=== PATIENT | male | born 1965 | race Caucasian/White ===

== ENCOUNTER 2022-03-24 00:20 | Day surgery (SDC) | payer BC, SELFPAY ==
[2022-03-07 15:05] VITALS: BMI 33.0
--- NOTE | 2022-03-23 13:30 | SUR.PREOP ---
pt notified there has been a recall on magnesium citrate and to not take this with his prep. pt verbalized understanding.
[2022-03-24 07:18] VITALS: BP 121/77; PULSE 56; RESP 16; TEMP 36.2; O2SAT 99; BMI 32.7
[2022-03-24] MEDS: LACTATED RINGERS 1,000 ML 150 ML IV CONT (07:28)
--- NOTE | 2022-03-24 07:53 | P.PNAN_ITS ---
Anes - Initial Pre Proc Eval Procedure: Operation Date: 03/24/22 08:30 Proposed Procedures p Screening Colonoscopy - Steven Craven MD Date/Time: 03/24/22 07:53 Surgeon: Steven Craven MD Pre Op Diagnosis: neoplasm screening Patient Data Age: 56 Gender: M Height: 1.78 m Weight: 103.5 kg Last Vital Signs Temp 97.2 F L 03/24/22 07:18 Pulse 56 L 03/24/22 07:18 Resp 16 03/24/22 07:18 BP 121/77 03/24/22 07:18 Pulse Ox 99 03/24/22 07:18 O2 Del Method Room Air 03/24/22 07:18 Allergies Allergy/AdvReac Type Severity Reaction Status Date / Time No Known Allergies Allergy Verified 03/24/22 07:15 Home Medications Medication Instructions Recorded Confirmed Type atorvastatin 40 mg tablet 40 mg PO DAILY 03/07/22 03/24/22 History lisinopril 20 mg tablet 20 mg PO DAILY 03/07/22 03/24/22 History Patient hx anesthesia problems: none Family hx anesthesia problems: none Results Review: All pre-operative results and documents have been reviewed as part of the pre- operative evaluation. PMFSH Social History Social History Smoking packs per day: 1 Smoking cigarettes per day: 20.0 Smoking status: Former smoker Tobacco type: cigarettes Living arrangements: with family Anes - Eval Final PreProcedure Day of Procedure 03/24/22 07:53 Patient weight: obese Heart: regular rate and rhythm Lungs: clear to auscultation Airway: Mallampati scale class II Neurological: alert and oriented Last oral intake: >/= 8 hours ASA classification: II Emergent: no Anesthetic plan: proceed Anesthesia type and monitoring: general GIVS and standard monitoring Results Review: All pre-operative results and documents have been reviewed as part of the pre- operative evaluation. Informed Consent: The patient's anesthetic plan and its attendant risks and benefits were discussed with the patient/family/POA. Questions were solicited and answers provided to the satisfaction of the patient/family/POA.
--- NOTE | 2022-03-24 07:53 | PM.IMHP ---
H&P: HPI History of Present Illness Date/Time: 03/24/22 07:53 Chief Complaint: Neoplasia screening. Narrative: This is a 56-year-old white male patient presents for screening colonoscopy. Patient's current weight appetite and bowel movements are normal. Patient denies abdominal pain. He has had no bleeding. Family history is noncontributory. Review of Systems Review of Systems: Review of systems noncontributory. [facility] Social History Social History Smoking packs per day: 1 Smoking cigarettes per day: 20.0 Smoking status: Former smoker Tobacco type: cigarettes Living arrangements: with family Meds Home Medications and Allergies Home Medications Medication Instructions Recorded Confirmed Type atorvastatin 40 mg tablet 40 mg PO DAILY 03/07/22 03/24/22 History lisinopril 20 mg tablet 20 mg PO DAILY 03/07/22 03/24/22 History Allergies Allergy/AdvReac Type Severity Reaction Status Date / Time No Known Allergies Allergy Verified 03/24/22 07:15 Vital Signs Vital Signs - 24 hr 03/24/22 07:18 Temperature 97.2 F L Pulse Rate 56 L Respiratory Rate 16 Blood Pressure 121/77 Pulse Oximetry 99 Oxygen Delivery Room Air Exam Narrative: Physical exam reveals patient to be alert. Vital signs stable. HEENT exam is unremarkable. Patient is anicteric. Lungs are clear to auscultation and percussion. Heart is without murmur or extra sounds. Abdominal exam bowel sounds are present soft nontender with no hepatosplenomegaly. Digital external rectal exam is normal. Assessment and Plan Assessment and plan (1) Encounter for screening colonoscopy: Code(s): Z12.11 - Encounter for screening for malignant neoplasm of colon Status: Acute Assessment and Plan: Patient presents today for screening colonoscopy. He appears to be at average risk for colon polyps. Further recommendations will be given after endoscopy.
[2022-03-24 08:55] VITALS: BP 110/56; PULSE 60; RESP 21; O2SAT 100
[2022-03-24 09:05] VITALS: BP 121/79; PULSE 55; RESP 19; O2SAT 100
[2022-03-24 09:15] VITALS: BP 122/89; PULSE 48; RESP 23; O2SAT 100
[2022-03-24 09:27] VITALS: PULSE 55
== END 2022-03-24 09:28 | disposition home or self-care (01) ==
PROVIDERS: PCP Internal Medicine; Visit Provider Internal Medicine Gastroenterology
PROC: 0DJD8ZZ Inspection of Lower Intestinal Tract, Via Natural or Artificial Opening Endoscopic (ICD-10-PCS; CPT 45378; principal; 2022-03-24 08:30)
DX: Z12.11 Encounter for screening for malignant neoplasm of colon (principal); K57.30 Diverticulosis of large intestine without perforation or abscess without bleeding; D12.8 Benign neoplasm of rectum; Z87.891 Personal history of nicotine dependence; E66.9 Obesity, unspecified; Z68.32 Body mass index [BMI] 32.0-32.9, adult
CPT/HCPCS: 45378; 88305; J2704; J7120

== ENCOUNTER 2022-05-02 20:44 | Emergency (ER) | payer BC, SELFPAY ==
[2022-05-02 20:47] VITALS: BP 156/90; PULSE 62; RESP 16; TEMP 36.9; O2SAT 100
[2022-05-02] MEDS: diphenhydrAMINE HCl CAP 25 MG CAPSULE 50 MG PO (22:51)
[2022-05-02] MEDS: FAMOTIDINE 20 MG TABLET PO (22:51)
[2022-05-02] MEDS: methylPREDNISolone SOD SUCC 125 MG VIAL IM (22:51)
--- NOTE | 2022-05-02 22:54 | ED.GENADULT ---
HPI - General Adult General Chief complaint: Skin/Abscess/Foreign Body <Sol Chowdhury PA-C - Last Filed: 05/02/22 23:57> Stated complaint: rash <BETSY Thurston Last Filed: 05/02/22 23:57> Time Seen by Provider: 05/02/22 21:20 <BETSY Thurston Last Filed: 05/02/22 23:57> Source: patient <BETSY Thurston Last Filed: 05/02/22 23:57> Mode of arrival: ambulatory <BETSY Thurston Last Filed: 05/02/22 23:57> Limitations: no limitations <BETSY Thurston Last Filed: 05/02/22 23:57> History of Present Illness HPI narrative: Patient is a 56-year-old male who presents the ED with report of possible allergic reaction. Patient reports he woke up at 4 AM this morning feeling like the lower half of his face, chin, neck was swollen. He was sleeping with his CPAP mask on and thought it may be irritated from that. Swelling has persisted. Patient has also since developed redness of his face and trunk with a diffuse pruritic maculopapular rash. Patient denies history of allergic reactions. He has not taken anything for symptoms today. He denies any recent new laundry detergents, soaps, lotions, medications. The only thing different over the last 2 days as he does report eating to [employer]. He is also on Lisinopril. Patient denies any swelling of lips, tongue, throat, difficulty breathing, nausea, vomiting, fever, abdominal pain. <BETSY Thurston Last Filed: 05/02/22 23:57> Related Data Home medications: Home Medications Medication Instructions Recorded Confirmed atorvastatin 40 mg tablet 40 mg PO DAILY 03/07/22 03/24/22 lisinopril 20 mg tablet 20 mg PO DAILY 03/07/22 03/24/22 <BETSY Thurston Last Filed: 05/02/22 23:57> Allergies/adverse reactions: Allergies Allergy/AdvReac Type Severity Reaction Status Date / Time No Known Allergies Allergy Verified 03/24/22 07:15 <Sol Chowdhury PA-C - Last Filed: 05/02/22 23:57> Review of Systems Review of Systems: CONSTITUTIONAL: Denies fever, chills, or sweats. ENT: Denies rhinorrhea, congestion, sore throat, dysphagia, swelling of throat/lips/tongue. CARDIOVASCULAR: Denies chest pain. RESPIRATORY: Denies dyspnea. GASTROINTESTINAL: Denies abdominal pain, nausea, vomiting. SKIN: Reports redness and swelling to lower half of face, chin, neck. Reports red itchy rash. <Sol Chowdhury PA-C - Last Filed: 05/02/22 23:57> All systems reviewed & are unremarkable except as noted in HPI and below <Sol Chowdhury PA-C - Last Filed: 05/02/22 23:57> PMFSH Past Medical History Medical History: Medical History Hyperlipidemia Hypertension <Sol Chowdhury PA-C - Last Filed: 05/02/22 23:57> Surgical History Surgical History: Surgical History (Updated 05/02/22 @ 22:58 by Sol Chowdhury PA-C) No pertinent past surgical history <Sol Chowdhury PA-C - Last Filed: 05/02/22 23:57> Social History Social History: Social History Smoking packs per day: 1 Smoking cigarettes per day: 20.0 Smoking status: Former smoker Tobacco type: cigarettes <Sol Chowdhury PA-C - Last Filed: 05/02/22 23:57> Exam Narrative: GENERAL: Well appearing, well-nourished, non-toxic, in no acute distress. HEAD: Normocephalic, atraumatic. EYES: PERRL/EOMI, conjunctivae clear bilaterally. No appreciable swelling of eyelids or periorbital regions. NOSE: Normal, no drainage. No swelling of nose. EARS: TMS clear, with good light reflex. No erythema or bulging. Diffuse redness and swelling of outer ears bilaterally, left greater than right. No TTP. THROAT: Pharynx clear, no exudate. MMs moist. Airway patent. No significant swelling of lips, tongue, throat. No tonsillar hypertrophy. NECK: Supp
== END 2022-05-03 00:01 | disposition home or self-care (01) ==
PROVIDERS: Emergency Provider Preventive Medicine Aerospace Medicine; PCP Internal Medicine
DX: T78.40XA Allergy, unspecified, initial encounter (principal); I10 Essential (primary) hypertension; E78.5 Hyperlipidemia, unspecified; Z87.891 Personal history of nicotine dependence
CPT/HCPCS: 96372; 99283; A9270; J2930